=== PATIENT | female | born 1955 | race Caucasian/White ===

== ENCOUNTER → 2017-02-09 | Outpatient (CLI) | payer MEDICAID ==
--- NOTE | 2017-02-09 17:17 | RADIOLOGY REPORT PS360 ---
BONE DENSITOMETRY(HIP:LT SPINE HISTORY: POST MENOPAUSAL ORDERING PHYSICIAN: Kaiden Montana MD PATIENT AGE: 62 years COMPARISON: 08/06/2015 FINDINGS: The BMD measured at the left femoral neck is 0.894 g/cm squared with a T score of -1. This is considered normal according to the World Health Organization criteria. Fracture risk is low. Suggest follow-up exam January 2019. There is been 1% decrease in the density of the hips 1.5% increase in density of the L-spine compared to the previous exam. IMPRESSION: Normal bone density
--- NOTE | 2017-02-12 11:01 | RADIOLOGY REPORT PS360 ---
DIG MAMM-SCREEN [facility] W/CAD CAD Screening ORDERING PHYSICIAN : Kaiden Montana MD PATIENT AGE: 62 years GENDER: Female COMPARISON: Previous mammograms: July INDICATION: Routine screening taking estrogen. Previous excisional biopsy superior left breast. Percutaneous biopsy superior right breast . Noncontributory family history TECHNIQUE: Standard CC and MLO images were obtained. R2 CAD reviewed. FINDINGS: Moderate density breast bilateral. Scattered fibrolinear elements RIGHT BREAST: Further regression of the density associated with the percutaneous biopsy site at the superior right breast. Metallic [employer] or here from the previous biopsy again noted. No new findings on right. LEFT BREAST:. Left breast with no significant areas of concern. Areas of nodularity questioned previously are less evident today. And can be followed Moderate density with IMPRESSION: . No new areas of concern. Follow-up in one year recommended BI-RADS CATEGORY: 2_Benign RECOMMENDED FOLLOWUP: 12M 12 MONTH FOLLOW-UP (A letter has been sent to the patient regarding results of the study.)
== END ==
LOC: RAD 09:30
DX: Z12.31 Encounter for screening mammogram for malignant neoplasm of breast (principal); Z78.0 Asymptomatic menopausal state; Z13.820 Encounter for screening for osteoporosis
CPT/HCPCS: G0202